=== PATIENT | female | born 1985 | race Caucasian/White ===

== ENCOUNTER 2016-11-08 13:36 | Emergency (ER) | payer MEDICAID ==
[~2016-11-08] VITALS: Ht 149.9 cm; Wt 49.8 kg
[2016-11-08 13:40] VITALS: Ht 149.9 cm; Wt 49.8 kg
--- OUTSIDE RECORDS SUMMARY | 2016-11-08 13:41 | XMS REPORT ---
Author Author Ivone Foster [facility] eClinicalWorks Address Unknown Phone Unavailable Care Team Providers Care Agricultural Inspector Name Role Phone Ivone Foster CP Unavailable Allergies, Adverse Reactions, Alerts Substance Reaction Event Type N.K.D.A. Info Not Available Non Drug Allergy Problems Problem Type Condition Code Onset Dates Condition Status Assessment Nicotine dependence, cigarettes, uncomplicated F17.210 Active Problem Nicotine dependence, cigarettes, uncomplicated F17.210 Active Assessment Encounter for gynecological examination (general) (routine) with abnormal findings Z01.411 Active Problem Right lower quadrant pain R10.31 Active Assessment Right lower quadrant pain R10.31 Active Assessment Encounter for test, result negative Z32.02 Active Assessment Encounter for other screening for malignant neoplasm of breast Z12.39 Active Assessment Encounter for screening for infections with a predominantly sexual mode of transmission Z11.3 Active Medications Medication Code System Code Instructions Start Date End Date Status Dosage Sertraline HCl [facility] [address]-74 50 MG Orally Once a day 1 tablet Hydrocodone-Acetaminophen [facility] [address]-80 5-325 MG Orally every 6 hrs 1 tablet as needed Cyclobenzaprine HCl [facility] [address]-05 10 MG Orally Three times a day 1 tablet Procedures Procedure Coding System Code Date CHYLMD TRACH, DNA, DIR PROBE CPT-4 59178 Jun 26, 2015 MANUEL, DNA, DIR PROBE CPT-4 83458 Jun 26, 2015 N.GONORRHOEAE, DNA, DIR PROB CPT-4 46534 Jun 26, 2015 Office Visit, New Pt., Level 3 CPT-4 98296 Jun 26, 2015 URINE TEST CPT-4 44873 Jun 26, 2015 HYATT VAG, DNA, DIR PROBE CPT-4 23696 Jun 26, 2015 TRICHOMONAS VAGIN, DIR PROBE CPT-4 42262 Jun 26, 2015 HPV HIGH-RISK TYPES CPT-4 29411 Jun 26, 2015 CYTOPATH, C/V AUTO, IN FLUID CPT-4 93378 Jun 26, 2015 Vital Signs Date/Time: Jun 26, 2015 BMI 30.27 Index Weight 112 lbs Height 51 in Blood Pressure Diastolic 69 mm Hg Blood Pressure Systolic 102 mm Hg Temperature 98.4 F Cardiac Monitoring Heart Rate 83 /min Results Name Result Date Reference Range Unit Abnormality Flag BV/VAGINITIS PANEL DNA PROBE ----TRICHOMONAS: TNP 20150626 N CHLAMYDIA/ N. GONORRHOEAE RNA, TMA ----NEISSERIA GONORRHOEAE RNA, TMA NOT DETECTED [id number] NOT DETECTED N ----CHLAMYDIA TRACHOMATIS RNA, TMA NOT DETECTED [id number] NOT DETECTED N Summary Purpose eClinicalWorks Submission
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
--- OUTSIDE RECORDS SUMMARY | 2016-11-08 13:42 | XMS REPORT ---
Author Author Ivone Foster Organization e[employer] Address Unknown Phone Unavailable Care Team Providers Care Large Animal Veterinarian Name Role Phone Ivone Foster CP Unavailable Allergies No Known Allergies Problems Problem Type Condition Code Onset Dates Condition Status Problem Nicotine dependence, cigarettes, uncomplicated F17.210 Active Problem Right lower quadrant pain R10.31 Active Medications No Known Medications Results No Known Results Summary Purpose eClinicalWorks Submission
--- OUTSIDE RECORDS SUMMARY | 2016-11-08 13:42 | XMS REPORT ---
Author Author Ivone Foster Organization [employer] Address Unknown Phone Unavailable Care Team Providers Care Account Manager [id number] Name Role Phone Ivone Foster CP Unavailable Allergies No Known Allergies Problems Problem Type Condition Code Onset Dates Condition Status Problem Nicotine dependence, cigarettes, uncomplicated F17.210 Active Problem Right lower quadrant pain R10.31 Active Medications No Known Medications Results No Known Results Summary Purpose eClinicalWorks Submission
--- OUTSIDE RECORDS SUMMARY | 2016-11-08 13:42 | XMS REPORT | Referral Summary ---
Author Author [facility] Organization [facility] Address Unknown Phone Unavailable Care Team Providers Care Registered Dental Hygienist Name Role Phone NO PCP, PT STATES Primary Care Physician Unavailable Encounter VC ANDREW [id number] Date(s): 12/31/14 - 12/31/14 [facility] [address] [place], [place] [address] Discharge Diagnosis: Acute abdominal pain Discharge Diagnosis: Acute diarrhea Final: ABDOMINAL PAIN, UNSPECIFIED SITE Final: Other acute pain Final: DIARRHEA Final: TOBACCO USE DISORDER Discharge Disposition: 01-Home or Self Care Attending Physician: Daniel Pulido DO Admitting Physician: Daniel Pulido DO Vital Signs Most recent to 1 oldest [Reference Range]: Temperature Oral 36.7 degC [35.8-37.3 degC] (12/31/14 3:56 PM) Peripheral Pulse 69 bpm Rate [60-100 bpm] (12/31/14 7:44 PM) Heart Rate Monitored 69 bpm [60-100 bpm] (12/31/14 7:42 PM) Respiratory Rate 16 br/min [14-20 br/min] (12/31/14 7:44 PM) Blood Pressure 112/75 mmHg [90-140/60-90 mmHg] (12/31/14 7:44 PM) Mean Arterial 86 mmHg Pressure, Cuff (12/31/14 7:42 PM) SpO2 99 % (12/31/14 7:44 PM) Problem List Condition Effective Dates Status Health Status Informant Depression(Confirmed Active patient ) Paranoid Active patient schizophrenia(Confir med) Tobacco Active patient user(Confirmed) Colitis, Active patient ulcerative(Confirmed ) Allergies, Adverse Reactions, Alerts Substance Reaction Severity Status penicillin Adverse Reaction Severe Active Dyspnea sulfamethoxazole Adverse Reaction Medium Active Rash Medications hydrOXYzine hydrochloride 50 mg oral tablet mg tabs, Oral, QID, 0 Refill(s) Start Date: 12/31/14 Status: Ordered Naprosyn 250 mg oral tablet 250 mg 1 tabs, Oral, BID, as needed for pain, # 14 tabs, 0 Refill(s) Start Date: 03/23/15 Stop Date: 03/30/15 Status: Ordered ondansetron 4 mg oral tablet, disintegrating See Instructions, 1 tabs Oral q6-8hrs prn nausea/vomiting, # 12 tabs, 0 Refill(s ) Start Date: 12/31/14 Stop Date: 01/01/16 Status: Ordered sertraline 50 mg oral tablet mg tabs, Oral, Daily, 0 Refill(s) Start Date: 12/31/14 Status: Ordered Results Hematology Most recent to 1 oldest [Reference Range]: WBC [4.8-10.8 8.0 10*3/uL 10*3/uL] (12/31/14 4:43 PM) RBC [4.00-5.20 4.68 10*6/uL 10*6/uL] (12/31/14 4:43 PM) Hgb [12.0-16.0 15.0 gm/dL gm/dL] (12/31/14 4:43 PM) Hct [37.0-47.0 %] 43.4 % (12/31/14 4:43 PM) MCV [82.0-99.0 fL] 92.7 fL (12/31/14 4:43 PM) MCH [27.0-32.0 pg] 32.1 pg *HI* (12/31/14 4:43 PM) MCHC [32.0-36.0 34.6 gm/dL gm/dL] (12/31/14 4:43 PM) RDW [11.5-14.5 %] 12.2 % (12/31/14 4:43 PM) Platelet [150-400 365 10*3/uL 10*3/uL] (12/31/14 4:43 PM) MPV [9.4-12.4 fL] 10.2 fL (12/31/14 4:43 PM) Immature 0.2 % Granulocytes (12/31/14 4:43 PM) [0.0-1.0 %] Neutrophils [51-75 67 % %] (12/31/14 4:43 PM) Lymphocytes [20-46 23 % %] (12/31/14 4:43 PM) Monocytes [4-11 %] 8 % (12/31/14 4:43 PM) Eosinophils [0-4 %] 2 % (12/31/14 4:43 PM) Basophils [0-2 %] 1 % (12/31/14 4:43 PM) Neutro Absolute 5.33 10*3 [1.90-7.00 10*3] (12/31/14 4:43 PM) Lymph Absolute 1.83 10*3 [0.80-3.30 10*3] (12/31/14 4:43 PM) Mclean Absolute 0.64 10*3 [0.30-1.00 10*3] (12/31/14 4:43 PM) Eos Absolute 0.13 10*3 [0.00-0.50 10*3] (12/31/14 4:43 PM) Baso Absolute 0.07 10*3 [0.00-0.20 10*3] (12/31/14 4:43 PM) Chemistry Most recent to 1 oldest [Reference Range]: Sodium Lvl [136-144 135 mEq/L mEq/L] *LOW* (12/31/14 4:43 PM) Potassium Lvl 3.8 mEq/L [3.6-5.1 mEq/L] (12/31/14 4:43 PM) Chloride [99-109 108 mEq/L mEq/L] (12/31/14 4:43 PM) CO2 [22-32 mEq/L] 21 mEq/L *LOW* (12/31/14 4:43 PM) AGAP [3-20] 6 (12/31/14 4:43 PM) BUN [4-20 mg/dL] 12 mg/dL (12/31/14 4:43 PM) Glucose Lvl [70-100 103 mg/dL mg/dL] *HI* (12/31/14 4:43 PM) Creatinine Lvl 0.66 mg/dL [0.44-1.03 mg/dL] (12/31/14 4:43 PM) eGFR [>60] >60 1 (12/31/14 4:43 PM) Calcium Lvl 9.6 mg/dL [8.6-10.0 mg/dL] (12/31/14 4:43 PM) U Beta hCG Ql Negative [Negative] (12/31/14 4:43 PM) 1Result Comment: Multiply eGFR results by 1.21 for race. Urinalysis Most recent to 1 oldest [Reference Range]: UA Color Dk Yellow (12/31/14 4:43 PM) UA Appear Sl Cloudy (12/31/14 4:43 PM) UA pH [5.0-8.0] 6.5 (12/31/14 4:43 PM) UA Leuk Est Negative [Negative] (12/31/14 4:43 PM) UA Nitrite Negative [Negative] (12/31/14 4:43 PM) UA Protein Negative [Negative] (12/31/14 4:43 PM) UA Glucose Negative [Negative] (12/31/14 4:43 PM) UA Ketones Negative [Negative] (12/31/14 4:43 PM) UA Urobilinogen Negative [<1.0] (12/31/14 4:43 PM) UA Bili [Negative] Negative (12/31/14 4:43 PM) UA Blood [Negative] Trace *ABN* (12/31/14 4:43 PM) UA Spec Grav 1.025 [1.003-1.030] (12/31/14 4:43 PM) Type Clean Catch (12/31/14 4:43 PM) UA WBC [0-4] 0-2 (12/31/14 4:43 PM) UA RBC [0-2] 0-2 (12/31/14 4:43 PM) Epithelial Cells 5-10 (12/31/14 4:43 PM) UA Bacteria Moderate *ABN* (12/31/14 4:43 PM) UA Mucous Present (12/31/14 4:43 PM) Immunizations No data available for this section Procedures Procedure Date Related Diagnosis Body Site Colon operation Colostomy1 1colostomy and reversal Social History Social History Type Response Smoking Status Current every day smoker Assessment and Plan No data available for this section
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
--- OUTSIDE RECORDS SUMMARY | 2016-11-08 13:42 | XMS REPORT ---
Author Author Ivone Foster Organization [employer] Address Unknown Phone Unavailable Care Team Providers Care Pupil Personnel Worker Name Role Phone Ivone Foster CP Unavailable Allergies No Known Allergies Problems Problem Type Condition Code Onset Dates Condition Status Problem Nicotine dependence, cigarettes, uncomplicated F17.210 Active Problem Right lower quadrant pain R10.31 Active Medications No Known Medications Results No Known Results Summary Purpose eClinicalWorks Submission
--- OUTSIDE RECORDS SUMMARY | 2016-11-08 13:42 | XMS REPORT ---
Author Author Ivone Foster Organization [employer] Address Unknown Phone Unavailable Care Team Providers Care Mission Assessment Specialist Name Role Phone Ivone Fostre CP Unavailable Allergies No Known Allergies Problems Problem Type Condition Code Onset Dates Condition Status Problem Nicotine dependence, cigarettes, uncomplicated F17.210 Active Problem Right lower quadrant pain R10.31 Active Medications No Known Medications Results No Known Results Summary Purpose eClinicalWorks Submission
--- OUTSIDE RECORDS SUMMARY | 2016-11-08 13:42 | XMS REPORT | Continuity of Care Document ---
Author Author [facility] Organization [facility] Address Unknown Phone Unavailable Allergies Active Description Code Type Severity Reaction Onset Reported/Identified Relationship to Patient Clinical Status Yes MIAMI MIAMI Drug Allergy Unknown RASH 12/04/2008 Yes Sulfa (Sulfonamide Antibiotics Drug Allergy Moderate Adverse Reaction 12/19/2009 Yes Penicillins Drug Allergy Adverse Reaction 12/31/2011 Yes Penicillins Drug Allergy N/A Adverse Reaction 12/31/2011 Yes DayQuil Allergy 12-HR Drug Allergy Adverse Reaction 01/14/2012 Yes DayQuil Allergy 12-HR Drug Allergy N/A Adverse Reaction 01/14/2012 Yes No Allergy Information Drug Allergy 03/18/2012 Yes NyQuil Drug Allergy Adverse Reaction 04/01/2012 Yes NyQuil Drug Allergy N/A Adverse Reaction 04/01/2012 Yes penicillin penicillin Drug Allergy Moderate SHORT OF BREATH 03/26/2016 Yes Sulfa (Sulfonamide Antibiotics) Sulfa (Sulfonamide Antibiotics) Drug Allergy Unknown DIZZY, VOMITING, HIVES, WEAKNESS 03/26/2016 Medications Problems Date Dx Coded Attending Type Code Diagnosis Diagnosed By 03/18/2012 Rony Carrillo MD Final 305.1 TOBACCO USE DISORDER 03/18/2012 Rony Carrillo MD Final 530.81 ESOPHAGEAL REFLUX 03/18/2012 Rony Carrillo MD Final 625.9 FE GENITAL SYMPTOMS NOS 03/18/2012 Rony Carrillo MD 789.00 ABDOMINAL PAIN-SITE NOS 04/01/2012 Leanne Richards DO Final 276.51 DEHYDRATION 04/01/2012 Leanne Richards DO Final 276.8 HYPOPOTASSEMIA 04/01/2012 Leanne Richards DO Final 458.8 HYPOTENSION NEC 04/01/2012 Leanne Richards DO Final 556.8 OTHER ULCERATIVE COLITIS 04/01/2012 Leanne Richards DO Final 648.93 OT CCE COMP PREG-AP 04/06/2012 Vinicius Brooks MD Final 288.60 LEUKOCYTOSIS NOS 04/06/2012 Vinicius Brooks MD Final 648.93 OT CCE COMP PREG-AP 04/06/2012 Vinicius Brooks MD Final 789.04 LLQ ABDOMINAL PAIN 07/02/2012 Shannen LADD, Bobby Rene 648.93 OT CURR COND-ANTEPARTUM 08/24/2012 Shannen LADD, Bobby Arredondo 556.9 ULCERATIVE COLITIS, UNSPECIFIED 08/24/2012 Bobby Pride MD 648.91 OTH CURR COND-DELIVERED 08/24/2012 Bobby Pride MD 648.92 OT CURR COND-DEL W P/P 08/24/2012 Bobby Pride MD 648.93 OT CURR COND-ANTEPARTUM 08/24/2012 Bobby Pride MD 782.1 NONSPECIF SKIN ERUPT NEC 08/24/2012 Bobby Pride MD V27.0 DELIVER-SINGLE LIVEBORN 02/10/2013 Nuno Campoverde DO Final 623.8 NONINFL DISORDER VAG NEC 02/10/2013 Nuno Campoverde DO Final 789.09 ABDOMINAL PAIN-SITE NEC 03/06/2013 Joseph Hoover MD Final 305.1 TOBACCO USE DISORDER 03/06/2013 Joseph Hoover MD Final 530.81 ESOPHAGEAL REFLUX 03/06/2013 Joseph Hoover MD 786.09 RESP ABNORMALITY NEC 03/06/2013 Joseph Hoover MD Admitting 786.2 COUGH 03/06/2013 Joseph Hoover MD Final 848.9 SPRAIN NOS 03/06/2013 Joseph Hoover MD External E928.9 ACCIDENT NOS 11/13/2013 Joseph Hoover MD Final 074.3 HAND, FOOT MOUTH DIS 11/13/2013 Joseph Hoover MD Final 305.1 TOBACCO USE DISORDER 11/13/2013 Joseph Hoover MD 911.2 BLISTER TRUNK W/O INFECT 11/13/2013 Joseph Hoover MD Admitting 913.2 BLISTER FOREARM W/O INF Procedures Code Description Performed By Performed On 74.1 LOW CERVICAL Bobby Pride MD 08/24/2012 Results Test Result Range URINALYSIS WITH MICROSCOPIC - 05/03/12 15:00 UA LEUKOCYTE ESTERASE DIPSTICK NEGATIVE NEGATIVE UA NITRITE DIPSTICK NEGATIVE NEGATIVE UA PROTEIN DIPSTICK NEGATIVE NEGATIVE UA GLUCOSE DIPSTICK NEGATIVE NEGATIVE UA KETONE DIPSTICK TRACE NEGATIVE UA UROBILINOGEN DIPSTICK NORMAL NORMAL UA BILIRUBIN DIPSTICK NEGATIVE NEGATIVE UA BLOOD DIPSTICK NEGATIVE NEGATIVE UA EPITHELIAL CELLS 3+ epi/hpf 0 - 1+ UA MUCUS 4+ NEG TO 1+ UA RBC 0-3 rbc/hpf 0 - 3 UA VOLUME FOR EXAM 12.0 mL (12mL STD) UA WBC 0-1 wbc/hpf 0 - 5 UA SPECIFIC GRAVITY 1.016 1.015-1.025 UR PH 6.5 5.0-7.0 URINE CULTURE - 05/03/12 15:00 Uncategorized CBC W/DIFF - 05/03/12 15:24 GRANULOCYTE # 21.1 k/cumm 2.0-9.0 LYMPHOCYTE # 0.4 k/cumm 1.0-4.0 LYMPHOCYTE % 2 % 20-30 MEAN CELL HGB 34.6 pg 27.0-33.0 MEAN CELL HGB CONCENTRATION 34.6 g/dl 32.0-36.0 MEAN CELL VOLUME 100.2 fl 80.0-100.0 MONOCYTE # 0.7 k/cumm 0.1-1.0 MONOCYTE % 3 % 4-6 RED BLOOD CELL 2.83 m/cumm 4.00-6.00 RED CELL DISTRIBUTION WIDTH 14.0 % 11.0- 15.6 WHITE BLOOD CELL 22.2 k/cumm 5.0-10.0 HEMOGLOBIN 9.8 gm/dL 12.0-16.0 HEMATOCRIT 28.4 % 37.0-47.0 PLATELET COUNT 258 k/cumm 150-450 MANUAL DIFF(R) - 05/03/12 15:24 BAND % 7 % 0-10 DIFFERENTIAL MANUAL RBC MORPH NOTED SEGMENTED NEUTROPHIL % 88 % 50-70 METABOLIC PANEL, COMPREHN - 05/03/12 15:24 POTASSIUM 3.2 mmol/L 3.5-5.3 EST GFR (MDRD) > 60 mL/min > 59 ANION GAP 11 mmol/L 5-15 EST CrCl (CG) > 60 mL/min > 59 GLUCOSE 69 mg/dL 70-99 CALCIUM 8.2 mg/dL 8.5-10.1 BLOOD UREA NITROGEN 7 mg/dL 7-20 CREATININE 0.5 mg/dL 0.6-1.0 SODIUM 136 mmol/L 135-148 CHLORIDE 105 mmol/L 98-110 AST/SGOT 11 Units/L 10-37 ALT/SGPT 17 Units/L < 66 CARBON DIOXIDE 20 mmol/L 21-32 TOTAL PROTEIN 6.4 gm/dL 6.4-8.2 ALBUMIN 2.6 gm/dL 3.4-5.0 BILI TOTAL 0.2 mg/dL 0.0-1.0 ALKALINE PHOSPHATASE TOTAL 64 Units/L 50- 136 INFLUENZA A OIA - INFLUENZA B OIA - 05/03/12 15:25 Uncategorized BLOOD CULTURE - 05/03/12 17:15 Uncategorized BLOOD CULTURE - 05/03/12 17:24 Uncategorized CAMPYLOBACTER ANTIGEN - 05/03/12 17:30 Uncategorized STOOL LEUKOCYTES - 05/03/12 17:30 Uncategorized CLOSTRIDIUM DIFFICILE DNA - 05/03/12 17:30 Uncategorized WET MOUNT - 05/04/12 02:10 Uncategorized GONORRHOEA DNA BY PCR - CHLAMYDIA DNA BY PCR - 05/04/12 02:10 Uncategorized CBC W/DIFF - 05/04/12 07:53 EOSINOPHIL # 0.1 k/cumm 0.1-0.5 EOSINOPHIL % 1 % 2-4 GRANULOCYTE # 14.4 k/cumm 2.0-9.0 GRANULOCYTE % 85 % 50-75 LYMPHOCYTE # 1.4 k/cumm 1.0-4.0 LYMPHOCYTE % 8 % 20-30 MEAN CELL HGB 34.8 pg 27.0-33.0 MEAN CELL HGB CONCENTRATION 34.5 g/dl 32.0-36.0 MEAN CELL VOLUME 101.1 fl 80.0-100.0 MONOCYTE # 1.0 k/cumm 0.1-1.0 MONOCYTE % 6 % 4-6 RED BLOOD CELL 2.60 m/cumm 4.00-6.00 RED CELL DISTRIBUTION WIDTH 13.9 % 11.0- 15.6 WHITE BLOOD CELL 17.1 k/cumm 5.0-10.0 HEMOGLOBIN 9.1 gm/dL 12.0-16.0 HEMATOCRIT 26.3 % 37.0-47.0 PLATELET COUNT 227 k/cumm 150-450 METABOLIC PANEL, COMPREHN - 05/04/12 07:53 POTASSIUM 3.4 mmol/L 3.5-5.3 EST GFR (MDRD) > 60 mL/min > 59 ANION GAP 9 mmol/L 5-15 EST CrCl (CG) > 60 mL/min > 59 GLUCOSE 102 mg/dL 70-99 CALCIUM 8.2 mg/dL 8.5-10.1 BLOOD UREA NITROGEN 3 mg/dL 7-20 CREATININE 0.6 mg/dL 0.6-1.0 SODIUM 139 mmol/L 135-148 CHLORIDE 110 mmol/L 98-110 AST/SGOT 9 Units/L 10-37 ALT/SGPT 13 Units/L < 66 CARBON DIOXIDE 20 mmol/L 21-32 TOTAL PROTEIN 6.0 gm/dL 6.4-8.2 ALBUMIN 2.4 gm/dL 3.4-5.0 BILI TOTAL 0.3 mg/dL 0.0-1.0 ALKALINE PHOSPHATASE TOTAL 59 Units/L 50- 136 CBC W/DIFF - 05/05/12 06:38 BASOPHIL # 0.1 k/cumm 0.0-0.2 BASOPHIL % 1 % 0-1 EOSINOPHIL # 0.3 k/cumm 0.1-0.5 EOSINOPHIL % 3 % 2-4 GRANULOCYTE # 7.4 k/cumm 2.0-9.0 GRANULOCYTE % 72 % 50-75 LYMPHOCYTE # 1.6 k/cumm 1.0-4.0 LYMPHOCYTE % 15 % 20-30 MEAN CELL HGB 35.2 pg 27.0-33.0 MEAN CELL HGB CONCENTRATION 34.7 g/dl 32.0-36.0 MEAN CELL VOLUME 101.6 fl 80.0-100.0 MONOCYTE # 1.0 k/cumm 0.1-1.0 MONOCYTE % 9 % 4-6 RED BLOOD CELL 2.58 m/cumm 4.00-6.00 RED CELL DISTRIBUTION WIDTH 14.1 % 11.0- 15.6 WHITE BLOOD CELL 10.3 k/cumm 5.0-10.0 HEMOGLOBIN 9.1 gm/dL 12.0-16.0 HEMATOCRIT 26.2 % 37.0-47.0 PLATELET COUNT 251 k/cumm 150-450 RENAL FUNCTION PANEL - 05/05/12 06:38 POTASSIUM 3.6 mmol/L 3.5-5.3 EST GFR (MDRD) > 60 mL/min > 59 ANION GAP 12 mmol/L 5-15 EST CrCl (CG) > 60 mL/min > 59 GLUCOSE 104 mg/dL 70-99 CALCIUM 8.5 mg/dL 8.5-10.1 BLOOD UREA NITROGEN 5 mg/dL 7-20 CREATININE 0.6 mg/dL 0.6-1.0 SODIUM 142 mmol/L 135-148 CHLORIDE 112 mmol/L 98-110 CARBON DIOXIDE 18 mmol/L 21-32 ALBUMIN 2.2 gm/dL 3.4-5.0 PHOSPHORUS 3.7 mg/dL 2.5-4.9 MAGNESIUM - 05/05/12 06:38 MAGNESIUM 1.4 mg/dL 1.8-2.4 HEPATITIS PANEL-ACUTE - 05/05/12 06:38 AB HEPATITIS A IGM NEGATIVE NEGATIVE AG HEPATITIS B SURF. NEGATIVE NEGATIVE AB HEPATITIS B CORE IGM NEGATIVE NEGATIVE AB HEPATITIS C NEGATIVE NEGATIVE IRON W/ BINDING CAPACITY - 05/05/12 06:38 IRON SATURATION 4 % SAT 11-46 IRON BINDING CAPACITY, TOTAL 331 mcg/dL 250-450 IRON 13 mcg/dL 35-150 FERRITIN - 05/05/12 06:38 FERRITIN 60 ng/mL 8-252 VITAMIN B12 - 05/05/12 06:38 VITAMIN B12 226 pg/mL 211-911 FOLIC ACID,SERUM - 05/05/12 06:38 FOLIC ACID,SERUM 14.0 ng/mL > 3.4 CBC W/DIFF - 05/06/12 05:46 BASOPHIL # 0.1 k/cumm 0.0-0.2 BASOPHIL % 1 % 0-1 EOSINOPHIL # 0.2 k/cumm 0.1-0.5 EOSINOPHIL % 2 % 2-4 GRANULOCYTE # 10.3 k/cumm 2.0-9.0 GRANULOCYTE % 81 % 50-75 LYMPHOCYTE # 1.3 k/cumm 1.0-4.0 LYMPHOCYTE % 10 % 20-30 MEAN CELL HGB 34.7 pg 27.0-33.0 MEAN CELL HGB CONCENTRATION 34.2 g/dl 32.0-36.0 MEAN CELL VOLUME 101.4 fl 80.0-100.0 MONOCYTE # 0.8 k/cumm 0.1-1.0 MONOCYTE % 7 % 4-6 RED BLOOD CELL 2.60 m/cumm 4.00-6.00 RED CELL DISTRIBUTION WIDTH 13.6 % 11.0- 15.6 WHITE BLOOD CELL 12.8 k/cumm 5.0-10.0 HEMOGLOBIN 9.0 gm/dL 12.0-16.0 HEMATOCRIT 26.3 % 37.0-47.0 PLATELET COUNT 265 k/cumm 150-450 RENAL FUNCTION PANEL - 05/06/12 05:46 POTASSIUM 3.5 mmol/L 3.5-5.3 EST GFR (MDRD) > 60 mL/min > 59 ANION GAP 13 mmol/L 5-15 EST CrCl (CG) > 60 mL/min > 59 GLUCOSE 89 mg/dL 70-99 CALCIUM 8.1 mg/dL 8.5-10.1 BLOOD UREA NITROGEN 7 mg/dL 7-20 CREATININE 0.7 mg/dL 0.6-1.0 SODIUM 140 mmol/L 135-148 CHLORIDE 107 mmol/L 98-110 CARBON DIOXIDE 20 mmol/L 21-32 ALBUMIN 2.2 gm/dL 3.4-5.0 PHOSPHORUS 4.4 mg/dL 2.5-4.9 MAGNESIUM - 05/06/12 05:46 MAGNESIUM 1.3 mg/dL 1.8-2.4 HOMOCYSTEINE, PLASMA - 05/06/12 05:46 HOMOCYSTEINE, PLASMA 5.5 mcmol/L 3.7- 13.9 METHYLMALONIC ACID, SERUM - 05/06/12 14:51 METHYLMALONIC ACID, SERUM 78 nmol/L 73- 376 STOOL LEUKOCYTES - 05/07/12 00:00 Uncategorized CAMPYLOBACTER ANTIGEN - 05/07/12 00:00 Uncategorized CLOSTRIDIUM DIFFICILE DNA - 05/07/12 00:00 Uncategorized CBC W/DIFF - 05/07/12 05:05 BASOPHIL # 0.1 k/cumm 0.0-0.2 BASOPHIL % 1 % 0-1 GRANULOCYTE # 12.6 k/cumm 2.0-9.0 GRANULOCYTE % 82 % 50-75 LYMPHOCYTE # 1.4 k/cumm 1.0-4.0 LYMPHOCYTE % 9 % 20-30 MEAN CELL HGB 34.8 pg 27.0-33.0 MEAN CELL HGB CONCENTRATION 34.6 g/dl 32.0-36.0 MEAN CELL VOLUME 100.3 fl 80.0-100.0 MONOCYTE # 1.3 k/cumm 0.1-1.0 MONOCYTE % 8 % 4-6 RED BLOOD CELL 2.59 m/cumm 4.00-6.00 RED CELL DISTRIBUTION WIDTH 13.6 % 11.0- 15.6 WHITE BLOOD CELL 15.4 k/cumm 5.0-10.0 HEMOGLOBIN 9.0 gm/dL 12.0-16.0 HEMATOCRIT 26.0 % 37.0-47.0 PLATELET COUNT 261 k/cumm 150-450 RENAL FUNCTION PANEL - 05/07/12 05:05 POTASSIUM 3.1 mmol/L 3.5-5.3 EST GFR (MDRD) > 60 mL/min > 59 ANION GAP 11 mmol/L 5-15 EST CrCl (CG) > 60 mL/min > 59 GLUCOSE 100 mg/dL 70-99 CALCIUM 8.3 mg/dL 8.5-10.1 BLOOD UREA NITROGEN 4 mg/dL 7-20 CREATININE 0.6 mg/dL 0.6-1.0 SODIUM 140 mmol/L 135-148 CHLORIDE 107 mmol/L 98-110 CARBON DIOXIDE 22 mmol/L 21-32 ALBUMIN 2.2 gm/dL 3.4-5.0 PHOSPHORUS 4.1 mg/dL 2.5-4.9 MAGNESIUM - 05/07/12 05:05 MAGNESIUM 1.9 mg/dL 1.8-2.4 CBC W/DIFF - 05/08/12 04:55 BASOPHIL # 0.1 k/cumm 0.0-0.2 BASOPHIL % 1 % 0-1 EOSINOPHIL # 0.4 k/cumm 0.1-0.5 EOSINOPHIL % 4 % 2-4 GRANULOCYTE # 6.5 k/cumm 2.0-9.0 GRANULOCYTE % 66 % 50-75 LYMPHOCYTE # 2.1 k/cumm 1.0-4.0 LYMPHOCYTE % 21 % 20-30 MEAN CELL HGB 34.4 pg 27.0-33.0 MEAN CELL HGB CONCENTRATION 34.0 g/dl 32.0-36.0 MEAN CELL VOLUME 101.1 fl 80.0-100.0 MONOCYTE # 0.8 k/cumm 0.1-1.0 MONOCYTE % 8 % 4-6 RED BLOOD CELL 2.57 m/cumm 4.00-6.00 RED CELL DISTRIBUTION WIDTH 13.7 % 11.0- 15.6 WHITE BLOOD CELL 9.9 k/cumm 5.0-10.0 HEMOGLOBIN 8.8 gm/dL 12.0-16.0 HEMATOCRIT 26.0 % 37.0-47.0 PLATELET COUNT 277 k/cumm 150-450 RENAL FUNCTION PANEL - 05/08/12 04:55 POTASSIUM 3.3 mmol/L 3.5-5.3 EST GFR (MDRD) > 60 mL/min > 59 ANION GAP 11 mmol/L 5-15 EST CrCl (CG) > 60 mL/min > 59 GLUCOSE 91 mg/dL 70-99 CALCIUM 8.2 mg/dL 8.5-10.1 BLOOD UREA NITROGEN 5 mg/dL 7-20 CREATININE 0.6 mg/dL 0.6-1.0 SODIUM 143 mmol/L 135-148 CHLORIDE 109 mmol/L 98-110 CARBON DIOXIDE 23 mmol/L 21-32 ALBUMIN 2.1 gm/dL 3.4-5.0 PHOSPHORUS 4.2 mg/dL 2.5-4.9 MAGNESIUM - 05/08/12 04:55 MAGNESIUM 1.5 mg/dL 1.8-2.4 STOOL FAT STAIN, QUALITATIVE - 05/08/12 14:45 Uncategorized CBC W/DIFF - 05/09/12 06:35 EOSINOPHIL # 0.3 k/cumm 0.1-0.5 EOSINOPHIL % 4 % 2-4 GRANULOCYTE # 5.9 k/cumm 2.0-9.0 GRANULOCYTE % 67 % 50-75 LYMPHOCYTE # 1.9 k/cumm 1.0-4.0 LYMPHOCYTE % 22 % 20-30 MEAN CELL HGB 34.7 pg 27.0-33.0 MEAN CELL HGB CONCENTRATION 34.1 g/dl 32.0-36.0 MEAN CELL VOLUME 101.8 fl 80.0-100.0 MONOCYTE # 0.7 k/cumm 0.1-1.0 MONOCYTE % 7 % 4-6 RED BLOOD CELL 2.54 m/cumm 4.00-6.00 RED CELL DISTRIBUTION WIDTH 13.6 % 11.0- 15.6 WHITE BLOOD CELL 8.9 k/cumm 5.0-10.0 HEMOGLOBIN 8.8 gm/dL 12.0-16.0 HEMATOCRIT 25.8 % 37.0-47.0 PLATELET COUNT 311 k/cumm 150-450 RENAL FUNCTION PANEL - 05/09/12 06:35 POTASSIUM 3.5 mmol/L 3.5-5.3 EST GFR (MDRD) > 60 mL/min > 59 ANION GAP 11 mmol/L 5-15 EST CrCl (CG) > 60 mL/min > 59 GLUCOSE 92 mg/dL 70-99 CALCIUM 8.1 mg/dL 8.5-10.1 BLOOD UREA NITROGEN 4 mg/dL 7-20 CREATININE 0.5 mg/dL 0.6-1.0 SODIUM 142 mmol/L 135-148 CHLORIDE 110 mmol/L 98-110 CARBON DIOXIDE 21 mmol/L 21-32 ALBUMIN 2.1 gm/dL 3.4-5.0 PHOSPHORUS 4.0 mg/dL 2.5-4.9 MAGNESIUM - 05/09/12 06:35 MAGNESIUM 1.5 mg/dL 1.8-2.4 CBC - 05/10/12 10:00 MEAN CELL HGB 34.0 pg 27.0-33.0 MEAN CELL HGB CONCENTRATION 34.0 g/dl 32.0-36.0 MEAN CELL VOLUME 100.1 fl 80.0-100.0 RED BLOOD CELL 2.72 m/cumm 4.00-6.00 RED CELL DISTRIBUTION WIDTH 13.4 % 11.0- 15.6 WHITE BLOOD CELL 10.5 k/cumm 5.0-10.0 HEMOGLOBIN 9.3 gm/dL 12.0-16.0 HEMATOCRIT 27.2 % 37.0-47.0 PLATELET COUNT 398 k/cumm 150-450 RENAL FUNCTION PANEL - 05/10/12 10:00 POTASSIUM 3.3 mmol/L 3.5-5.3 EST GFR (MDRD) > 60 mL/min > 59 ANION GAP 10 mmol/L 5-15 EST CrCl (CG) > 60 mL/min > 59 GLUCOSE 143 mg/dL 70-99 CALCIUM 8.6 mg/dL 8.5-10.1 BLOOD UREA NITROGEN 5 mg/dL 7-20 CREATININE 0.6 mg/dL 0.6-1.0 SODIUM 140 mmol/L 135-148 CHLORIDE 108 mmol/L 98-110 CARBON DIOXIDE 22 mmol/L 21-32 ALBUMIN 2.5 gm/dL 3.4-5.0 PHOSPHORUS 3.5 mg/dL 2.5-4.9 MAGNESIUM - 05/10/12 10:00 MAGNESIUM 1.1 mg/dL 1.8-2.4 MAGNESIUM - 05/10/12 19:42 MAGNESIUM 2.2 mg/dL 1.8-2.4 URINALYSIS WITH MICROSCOPIC - 07/02/12 19:50 UA LEUKOCYTE ESTERASE DIPSTICK 2+ NEGATIVE UA NITRITE DIPSTICK NEGATIVE NEGATIVE UA PROTEIN DIPSTICK NEGATIVE NEGATIVE UA GLUCOSE DIPSTICK NEGATIVE NEGATIVE UA KETONE DIPSTICK 2+ NEGATIVE UA UROBILINOGEN DIPSTICK NORMAL NORMAL UA BILIRUBIN DIPSTICK NEGATIVE NEGATIVE UA BLOOD DIPSTICK NEGATIVE NEGATIVE UA BACTERIA 4+ NEGATIVE UA EPITHELIAL CELLS 5+ epi/hpf 0 - 1+ UA MUCUS 3+ NEG TO 1+ UA RBC 0-3 rbc/hpf 0 - 3 UA VOLUME FOR EXAM 12.0 mL (12mL STD) UA WBC 20-50 wbc/hpf 0 - 5 UA SPECIFIC GRAVITY 1.012 1.015-1.025 UR PH 5.0 5.0-7.0 URINE CULTURE - 07/02/12 19:50 Uncategorized WET MOUNT - 07/02/12 20:55 Uncategorized FIBRONECTIN - 07/02/12 20:55 FIBRONECTIN POSITIVE NEGATIVE CBC - 07/02/12 21:30 MEAN CELL HGB 32.1 pg 27.0-33.0 MEAN CELL HGB CONCENTRATION 33.2 g/dL 32.0-37.0 MEAN CELL VOLUME 96.6 fl 80.0-100.0 RED BLOOD CELL 2.90 m/cumm 4.00-6.00 RED CELL DISTRIBUTION WIDTH 13.8 % 11.0- 15.6 WHITE BLOOD CELL 15.7 k/cumm 5.0-10.0 HEMOGLOBIN 9.3 gm/dL 12.0-16.0 HEMATOCRIT 28.0 % 37.0-47.0 PLATELET COUNT 406 k/cumm 150-400 CBC - 08/24/12 12:10 MEAN CELL HGB 32.5 pg 27.0-33.0 MEAN CELL HGB CONCENTRATION 33.1 g/dL 32.0-37.0 MEAN CELL VOLUME 98.0 fl 80.0-100.0 RED BLOOD CELL 3.05 m/cumm 4.00-6.00 RED CELL DISTRIBUTION WIDTH 14.7 % 11.0- 15.6 WHITE BLOOD CELL 12.6 k/cumm 5.0-10.0 HEMOGLOBIN 9.9 gm/dL 12.0-16.0 HEMATOCRIT 29.9 % 37.0-47.0 PLATELET COUNT 361 k/cumm 150-400 CORD VENOUS BLOOD GAS - 08/24/12 14:50 VENOUS CORD BLOOD BASE EXCESS -2.0 meq/L -5.8-0.7 COMMENT VENOUS VENOUS CORD BLOOD HCO3 23.4 meq/L 17.4- 25.4 VENOUS CORD BLOOD PCO2 42 mm Hg 28-57 VENOUS CORD BLOOD PH 7.36 7.23-7.46 VENOUS CORD BLOOD PO2 26 mm Hg 15-42 VENOUS CORD BLOOD O2 SAT 57 % 14-75 CORD ARTERIAL BLOOD GAS - 08/24/12 14:50 ARTERIAL CORD BLD BASE EXCESS -1.7 meq/L -7.6-1.3 COMMENT ARTERIAL ARTERIAL CORD BICARBONATE 26.8 meq/L 16.0 -27.1 ARTERIAL CORD BLOOD PCO2 62 mm Hg 32-69 ARTERIAL CORD BLOOD PH 7.26 7.14-7.40 ARTERIAL CORD BLOOD PO2 7.0 mm Hg 8-33 ARTERIAL CORD BLOOD O2 SAT < 15 % 5-59 HEMOGLOBIN - 08/24/12 18:19 MEAN CELL VOLUME 98.3 fl 80.0-100.0 HEMOGLOBIN 9.7 gm/dL 12.0-16.0 METABOLIC PANEL, COMPREHN - 08/25/12 06:36 POTASSIUM 3.6 mmol/L 3.5-5.3 EST GFR (MDRD) > 60 mL/min > 59 ANION GAP 9 mmol/L 5-15 EST CrCl (CG) > 60 mL/min > 59 GLUCOSE 62 mg/dL 70-99 CALCIUM 7.7 mg/dL 8.5-10.1 BLOOD UREA NITROGEN 8 mg/dL 7-20 CREATININE 0.8 mg/dL 0.6-1.0 SODIUM 141 mmol/L 135-148 CHLORIDE 107 mmol/L 98-110 AST/SGOT 26 Units/L 10-37 ALT/SGPT 18 Units/L < 66 CARBON DIOXIDE 25 mmol/L 21-32 TOTAL PROTEIN 5.3 gm/dL 6.4-8.2 ALBUMIN 2.1 gm/dL 3.4-5.0 BILI TOTAL 0.3 mg/dL 0.0-1.0 ALKALINE PHOSPHATASE TOTAL 215 Units/L 50 -136 HEMOGLOBIN - 08/25/12 06:37 MEAN CELL VOLUME 98.1 fl 80.0-100.0 HEMOGLOBIN 8.7 gm/dL 12.0-16.0 URINALYSIS, ROUTINE - 11/14/15 14:55 UA LEUKOCYTE ESTERASE DIPSTICK TRACE NEGATIVE UA NITRITE DIPSTICK NEGATIVE NEGATIVE UA PROTEIN DIPSTICK TRACE NEGATIVE UA GLUCOSE DIPSTICK NEGATIVE NEGATIVE UA KETONE DIPSTICK NEGATIVE NEGATIVE UA UROBILINOGEN DIPSTICK NORMAL NORMAL UA BILIRUBIN DIPSTICK NEGATIVE NEGATIVE UA BLOOD DIPSTICK 2+ NEGATIVE UA SPECIFIC GRAVITY 1.030 1.015-1.025 UR PH 5.0 5.0-7.0 UA MICROSCOPIC - 11/14/15 14:55 UA AMORPHOUS SEDIMENT 4+ UA BACTERIA 5+ NEGATIVE UA EPITHELIAL CELLS 4+ epi/hpf 0 - 1+ UA MUCUS 3+ NEG TO 1+ UA RBC 3-5 rbc/hpf 0 - 3 UA VOLUME FOR EXAM 12.0 mL (12mL STD) UA WBC 2-5 wbc/hpf 0 - 5 UR TEST - 11/14/15 14:55 UR TEST NEGATIVE NEGATIVE CBC W/DIFF - 11/14/15 15:25 BASOPHIL # 0.1 k/cumm 0.0-0.2 BASOPHIL % 1 % 0-1 EOSINOPHIL # 0.3 k/cumm 0.1-0.5 EOSINOPHIL % 4 % 2-4 GRANULOCYTE # 6.2 k/cumm 2.0-9.0 GRANULOCYTE % 71 % 50-75 LYMPHOCYTE # 1.5 k/cumm 1.0-4.0 LYMPHOCYTE % 17 % 20-30 MEAN CELL HGB 33.3 pg 27.0-33.0 MEAN CELL HGB CONCENTRATION 34.9 g/dL 32.0-37.0 MEAN CELL VOLUME 95.4 fl 80.0-100.0 MONOCYTE # 0.7 k/cumm 0.1-1.0 MONOCYTE % 8 % 4-6 RED BLOOD CELL 4.17 m/cumm 4.00-6.00 RED CELL DISTRIBUTION WIDTH 12.0 % 11.0- 15.6 WHITE BLOOD CELL 8.7 k/cumm 5.0-10.0 HEMOGLOBIN 13.9 gm/dL 12.0-16.0 HEMATOCRIT 39.8 % 37.0-47.0 PLATELET COUNT 287 k/cumm 150-450 METABOLIC PANEL, COMPREHN - 11/14/15 15:25 POTASSIUM 3.4 mmol/L 3.5-5.3 EST GFR (MDRD) > 60 mL/min > 59 ANION GAP 7 mmol/L 5-15 EST CrCl (CG) > 60 mL/min > 59 GLUCOSE 97 mg/dL 70-99 CALCIUM 8.5 mg/dL 8.5-10.1 BLOOD UREA NITROGEN 11 mg/dL 7-20 CREATININE 0.7 mg/dL 0.6-1.0 SODIUM 138 mmol/L 135-148 CHLORIDE 107 mmol/L 98-110 AST/SGOT 19 Units/L 10-37 ALT/SGPT 22 Units/L < 66 CARBON DIOXIDE 24 mmol/L 21-32 TOTAL PROTEIN 7.7 gm/dL 6.4-8.2 ALBUMIN 4.1 gm/dL 3.4-5.0 BILI TOTAL 0.5 mg/dL 0.0-1.0 ALKALINE PHOSPHATASE TOTAL 71 IU/L 45- 117 URINALYSIS, ROUTINE - 03/26/16 16:20 UA LEUKOCYTE ESTERASE DIPSTICK TRACE NEGATIVE UA NITRITE DIPSTICK NEGATIVE NEGATIVE UA PROTEIN DIPSTICK TRACE NEGATIVE UA GLUCOSE DIPSTICK NEGATIVE NEGATIVE UA KETONE DIPSTICK NEGATIVE NEGATIVE UA UROBILINOGEN DIPSTICK NORMAL NORMAL UA BILIRUBIN DIPSTICK NEGATIVE NEGATIVE UA BLOOD DIPSTICK TRACE NEGATIVE UA SPECIFIC GRAVITY 1.030 1.015-1.025 UR PH 5.0 5.0-7.0 UA MICROSCOPIC - 03/26/16 16:20 UA BACTERIA 2+ NEGATIVE UA EPITHELIAL CELLS 2+ epi/hpf 0 - 1+ UA HYALINE CAST 1-2 cast/lpf 0 - 1 UA MUCUS 1+ NEG TO 1+ UA RBC 3-5 rbc/hpf 0 - 3 UA VOLUME FOR EXAM 12.0 mL (12mL STD) UA WBC 5-10 wbc/hpf 0 - 5 UR TEST - 03/26/16 16:20 UR TEST NEGATIVE NEGATIVE Encounters ACCT No. Visit Date/Time Discharge Status Pt. Type Provider Facility Loc./Unit Complaint [id number] 11/13/2013 19:44:00 2013 20:49:00 DIS Emergency Joseph Hoover MD [facility] [id number] 03/06/2013 17:22:00 2012 19:15:00 DIS Emergency Joseph Hoover MD [facility] [id number] 02/10/2013 12:31:00 2012 15:03:00 DIS Emergency Nuno Campoverde DO [facility] [id number] 04/06/2012 05:57:00 2011 07:58:00 DIS Emergency Vinicius Brooks MD [facility] on [address] ME[address]A [id number] 04/01/2012 06:38:00 2011 17:00:00 DIS Inpatient Leanne Richards DO [facility] on [address] J[address] [id number] 03/18/2012 00:17:00 2011 03:05:00 DIS Emergency Lorena LADD, Rony Chilel [facility] on [address]
--- OUTSIDE RECORDS SUMMARY | 2016-11-08 13:42 | XMS REPORT | Referral Summary ---
Author Author [facility] Organization [facility] Address Unknown Phone Unavailable Care Team Providers Care Managing Editor Name Role Phone NO PCP, PT STATES Primary Care Physician Unavailable Encounter VC ANDREW [id number] Date(s): 03/23/15 - 03/23/15 [facility] [address] [place] [address] Discharge Diagnosis: Acute urinary tract infection Final: URINARY TRACT INFECTION, SITE NOT SPECIFIED Discharge Disposition: 01-Home or Self Care Attending Physician: Anders Hill MD Admitting Physician: Anders Hill MD Referring Physician: Self Referred, X Vital Signs Most recent to 1 oldest [Reference Range]: Temperature Oral 36.5 degC [35.8-37.3 degC] (03/23/15 4:15 PM) Peripheral Pulse 85 bpm Rate [60-100 bpm] (03/23/15 4:15 PM) Respiratory Rate 18 br/min [14-20 br/min] (03/23/15 4:15 PM) Blood Pressure 120/71 mmHg [90-140/60-90 mmHg] (03/23/15 4:15 PM) SpO2 98 % (03/23/15 4:15 PM) Problem List Condition Effective Dates Status [...] to 1 oldest [Reference Range]: WBC [4.8-10.8 10.1 10*3/uL 10*3/uL] (03/23/15 1:06 PM) RBC [4.00-5.20] 4.69 (03/23/15 1:06 PM) Hgb [12.0-16.0 15.8 gm/dL gm/dL] (03/23/15 1:06 PM) Hct [37.0-47.0 %] 43.7 % (03/23/15 1:06 PM) MCV [82.0-99.0 fL] 93.2 fL (03/23/15 1:06 PM) MCH [27.0-32.0 pg] 33.7 pg *HI* (03/23/15 1:06 PM) MCHC [32.0-36.0 36.2 gm/dL gm/dL] *HI* (03/23/15 1:06 PM) RDW [11.5-14.5 %] 12.4 % (03/23/15 1:06 PM) Platelet [150-400 312 10*3/uL 10*3/uL] (03/23/15 1:06 PM) MPV [9.4-12.4 fL] 10.5 fL (03/23/15 1:06 PM) Immature 0.3 % Granulocytes (03/23/15 1:06 PM) [0.0-1.0 %] Neutrophils [51-75 77 % %] *HI* (03/23/15 1:06 PM) Lymphocytes [20-46 11 % %] *LOW* (03/23/15 1:06 PM) Monocytes [4-11 %] 9 % (03/23/15 1:06 PM) Eosinophils [0-4 %] 2 % (03/23/15 1:06 PM) Basophils [0-2 %] 0 % (03/23/15 1:06 PM) Neutro Absolute 7.78 10*3 [1.90-7.00 10*3] *HI* (03/23/15 1:06 PM) Lymph Absolute 1.12 10*3 [0.80-3.30 10*3] (03/23/15 1:06 PM) Wright Absolute 0.91 10*3 [0.30-1.00 10*3] (03/23/15 1:06 PM) Eos Absolute 0.21 10*3 [0.00-0.50 10*3] (03/23/15 1:06 PM) Baso Absolute 0.04 10*3 [0.00-0.20 10*3] (03/23/15 1:06 PM) Nucleated RBC 0.0 /100 WBC Automated [0 /100 (03/23/15 1:06 PM) WBC] Chemistry Most recent to 1 oldest [Reference Range]: Sodium Lvl [136-144 137 mEq/L mEq/L] (03/23/15 1:06 PM) Potassium Lvl 4.2 mEq/L [3.6-5.1 mEq/L] (03/23/15 1:06 PM) Chloride [99-109 104 mEq/L mEq/L] (03/23/15 1:06 PM) CO2 [22-32 mEq/L] 20 mEq/L *LOW* (03/23/15 1:06 PM) AGAP [3-20] 13 (03/23/15 1:06 PM) BUN [4-20 mg/dL] 9 mg/dL (03/23/15 1:06 PM) Glucose Lvl [70-100 102 mg/dL mg/dL] *HI* (03/23/15 1:06 PM) Creatinine Lvl 0.69 mg/dL [0.44-1.03 mg/dL] (03/23/15 1:06 PM) eGFR [>60] >60 1 (03/23/15 1:06 PM) Calcium Lvl 10.4 mg/dL [8.6-10.0 mg/dL] *HI* (03/23/15 1:06 PM) Albumin Lvl [3.5-4.8 4.5 gm/dL gm/dL] (03/23/15 1:06 PM) Total Protein 8.8 gm/dL [6.1-7.9 gm/dL] *HI* (03/23/15 1:06 PM) Globulin [1.9-4.3 4.3 gm/dL gm/dL] (03/23/15 1:06 PM) ALT [14-54 U/L] 63 U/L *HI* (03/23/15 1:06 PM) AST [15-41 U/L] 43 U/L *HI* (03/23/15 1:06 PM) Alk Phos [26-104 98 U/L U/L] (03/23/15 1:06 PM) Bili Total [0.2-1.2 0.6 mg/dL 2 mg/dL] (03/23/15 1:06 PM) Lipase Lvl [8-48 11 U/L U/L] (03/23/15 1:06 PM) Screen, Negative Urine NPT (03/23/15 1:10 PM) 1Result Comment: Multiply eGFR results by 1.21 for race. 2Result Comment: Naproxen, specifically the metabolite O-desmethylnaproxen, may cause spurious elevation in Total Bilirubin levels. Urinalysis Most recent to 1 oldest [Reference Range]: UA Color Yellow (03/23/15 1:06 PM) UA Appear Clear (03/23/15 1:06 PM) UA pH [5.0-8.0] 5.0 (03/23/15 1:06 PM) UA Leuk Est Negative [Negative] (03/23/15 1:06 PM) UA Nitrite Negative [Negative] (03/23/15 1:06 PM) UA Protein Trace [Negative] *ABN* (03/23/15 1:06 PM) UA Glucose Negative [Negative] (03/23/15 1:06 PM) UA Ketones Negative [Negative] (03/23/15 1:06 PM) UA Urobilinogen Negative [<1.0] (03/23/15 1:06 PM) UA Bili [Negative] Negative (03/23/15 1:06 PM) UA Blood [Negative] Pos 1+ *ABN* (03/23/15 1:06 PM) UA Spec Grav 1.022 [1.003-1.030] (03/23/15 1:06 PM) Type Clean Catch (03/23/15 1:06 PM) UA WBC [0-4] 0-2 (03/23/15 1:06 PM) UA RBC [0-2] 0-2 (03/23/15 1:06 PM) Epithelial Cells 5-10 (03/23/15 1:06 PM) UA Bacteria Moderate *ABN* (03/23/15 1:06 PM) UA Hyal Cast [0-3] 1-3 (03/23/15 1:06 PM) UA Mucous Present (03/23/15 1:06 PM) Microbiology Reports TEST: Affirm Vaginitis Panel STATUS: Auth (Verified) BODY SITE: SOURCE: Cervix/Vaginal COLLECTED DATE/TIME: 03/23/15 2:33 PM Affirm Vaginitis Panel Negative for Trichomonas vaginalis Positive for Gardnerella vaginalis Negative for Mar[place] species Immunizations No data available for this section Procedures Procedure Date Related Diagnosis Body Site Colon operation Colostomy1 1colostomy and reversal Social History Social History Type Response Smoking Status Current every day smoker Assessment and Plan No data available for this section
[2016-11-08] MEDS ORDERED: IBUP-1724 PO (13:56)
[2016-11-08] MEDS ORDERED: SERT50TA PO (13:56)
[2016-11-08] MEDS ORDERED: IBUP-1842 PO (13:57)
--- OUTSIDE RECORDS SUMMARY | 2016-11-08 14:01 | XMS REPORT | Continuity of Care Document ---
Author Author [facility] Organization [facility] Address Unknown Phone Unavailable Allergies Active Description Code Type Severity Reaction Onset Reported/Identified Relationship to Patient Clinical Status Yes BARROW BARROW Drug Allergy Unknown RASH 12/04/2008 Yes Sulfa [...] Status Pt. Type Provider Facility Loc./Unit Complaint [id number] 11/13/2013 19:44:00 2013 20:49:00 DIS Emergency Joseph Hoover MD [facility] [id number] 03/06/2013 17:22:00 2012 19:15:00 DIS Emergency Joseph Hoover MD [facility] [id number] 02/10/2013 12:31:00 2012 15:03:00 DIS Emergency Nuno Campoverde DO [facility] [id number] 04/06/2012 05:57:00 2011 07:58:00 DIS Emergency Vinicius Brooks MD [facility] on [address] [id number] 04/01/2012 06:38:00 2011 17:00:00 DIS Inpatient Leanne Richards DO [facility] on [address] J[address]W [id number] 03/18/2012 00:17:00 2011 03:05:00 DIS Emergency Lorena LADD, Rony Chilel [facility] on [address]
--- NOTE | 2016-11-08 14:04 | ERPDOC ---
Departure Disposition Decision Date: Nov 08, 2016 Disposition Decision Time: 16:31 Disposition: 01 DISCHARGED HOME, SELF-CARE Impression Impression Impression: Primary Impression: Right ovarian cyst Severity: Moderate Condition: Improved Seen By: Mid-level only Referrals: JINNY DUKE MD Patient Instructions: Ovarian Cyst (ED) Problems/Meds/Labs Reviewed?: Yes Medications reviewed and manag: Yes Additional Instructions: You have an ovarian cyst on the right. You need to follow with Dr. Duke or someone in her office this week (see phone number attached with dismissal packet). You may take 800mg of ibuprofen every 8 hours for pain. You may tae [place] 5/325mg, 1-2 tabs every 6 hours as needed for pain. Medication may cause drowsiness so avoid operating heavy machinery, driving or drinking alcohol while taking. You may take Zofran 4 mg ODT, dissolve one tab on tongue every 6 hours as needed for nausea or vomiting. If you pain is worsening before appointment for follow up please page Dr. Duke directly through [facility] mixing operator. Follow treatment plan. Follow up care ordered?: Yes Mental Status: Alert, Oriented Scripts Ondansetron (Zofran Odt) 4 Mg Tab.rapdis 4 MG PO Q6HR for NAUSEA &/OR VOMITING, #15 TAB Oral disintegrating tablet Prov: SAROJ RYAN ZINC SKIMMER 11/08/16 Hydrocodone/Acetaminophen ([place] 5-325 Tablet) 5-325 Tablet 1-2 TAB PO Q6HPRN, #20 TAB Prov: SAROJ RYAN APRN 11/08/16 HPI - Abdominal Pain General Chief Complaint: Abdominal Pain Stated Complaint: R SIDE PAIN Time Seen by Provider: 13:50 Source: patient HPI - Abdominal Pain Initial Comments 31-year-old female presents to ER with complaint of right lower quadrant pain for past 3 days. Reports she has had mild nausea and some loose stools. Says that pain feels like gas. Pain worse after eating. Patient states that she has had a colostomy with bowel resection due to ulcerative colitis. LMP 4--17, denies any new sexual partners. Pain Scale: Now: 4/10 Quality: cramping Associated Symptoms: DENIES: back pain, chest pain, diaphoresis, fever/chills, shortness of breath, swelling/mass in abdomen, weakness Allergies: Coded Allergies: Sulfa (Sulfonamide Antibiotics) (Verified Allergy, Unknown, HIVES, 11/08/16 ) Past History Past Medical History Metabolic: DENIES: diabetes Cardiac: DENIES: angina Respiratory: DENIES: asthma GI: ulcerative colitis Female: DENIES: renal insufficiency Neurological: DENIES: seizures Musculoskeletal: DENIES: rheumatoid arthritis Psychological: DENIES: depression Surgical History General: colonoscopy, other (Colectomy) Family History Family PMH: FOUND: other (noncontributory) Social History Sexuality: male partner Review of Systems Constitutional Constitutional: DENIES: chills, dizziness, fever, weakness Eyes General: DENIES: erythema, exudate Lids/Accessories: DENIES: erythema, swelling ENMT Ears: DENIES: pain Sinuses: DENIES: congestion, rhinorrhea Mouth/Throat: DENIES: sore throat Cardiovascular Cardiac: DENIES: chest pain, murmur Rhythm/Rate: DENIES: palpitations Pulmonary Respiratory: DENIES: cough, dyspnea GI Upper Abdomen: nausea, see HPI, DENIES: pain, vomiting Lower Abdomen: pain, see HPI, DENIES: blood in stool, diarrhea General: DENIES: dysuria, pain Musculoskeletal General: DENIES: joint pain, pain, tenderness Integumentary Skin: DENIES: color change, itching, rash Neurological General: DENIES: ataxia, change in strength, numbness, paralysis/paresis, weakness Psychiatric Psychiatric: DENIES: anxiety, depression, nervousness Physical Exam General General Nourishment: well nourished, well developed, no acute distress, adult Vitals and Pain First Documented Vital Signs Date Time Temp Pulse Resp B/P Pulse Ox O2 Delivery O2 Flow Rate FiO2 11/08/16 13:40 98.3 103 18 131/81 98 Room Air Weight: Kilograms: 49.800 Height (feet): 4 Height (inches): 11.00 Triage Pain Scale: Eyes (brief) Eyes Brief: found: EOMI ENMT (brief) ENMT Brief: FOUND: mucosa moist, NOT FOUND: nasal exudate, nasal swelling, pharnyx erythema Neck (brief) Neck: FOUND: trachea midline Respiratory (brief) Respiratory: FOUND: clear all guzman, equal bilaterally, symmetrical Cardiovascular (brief) Cardiac: FOUND: regular rate, regular rhythm Abdomen (brief) Abdominal Brief: FOUND: bowel normo active x4, soft, NOT FOUND: distended, tender Musculoskeletal (brief) Musculoskeletal Brief: NOT FOUND: deformity, tenderness Integumentary (brief) Integumentary Brief: FOUND: dry, pink, warm Neurologic (brief) Neurological Brief: FOUND: CN w/o gross def to obs, motor-no gross deficits, sensory-no gross deficits Psychiatric (brief) Psychiatric Brief: FOUND: alert, normal affect, oriented Differential Diagnoses Considering: Acute SC, Bowel Obstruction, Diverticulitis, Ovarian Cyst, Ulcerative Colitis Progress Results/Orders Orders Procedure Category Date Status Time Cbc W/Auto LAB 11/08/16 Complete Diff-Reflex Manual Cmp - Comprehensive LAB 11/08/16 Complete Metabolic Lipase LAB 11/08/16 Complete LAB 11/08/16 Complete Qualitative, Urine 14:00 Iv Lock (Ed Only) EDM 11/08/16 Transmitted 14:08 Ondansetron Inj PHA 11/08/16 Complete (Zofran) 14:15 Hydromorphone PHA 11/08/16 Complete (Dilaudid) 15:00 UA, LAB 11/08/16 Complete Dip&Micro(Complete) & 14:22 Normal Saline (Normal PHA 11/08/16 Complete Saline Iv) 15:15 Ct Abd/Pelvis CT 11/08/16 Taken W/Contrast Only Iohexol (Omnipaque) PHA 11/08/16 Complete 15:30 Normal Saline (Ns) PHA 11/08/16 Complete 15:31 Saline Flush (Iv PHA 11/08/16 Complete Flush) 15:31 Ketorolac (Toradol) PHA 11/08/16 Complete 17:00 Lab Results Laboratory Tests Test 11/08/16 14:22 White Blood Count 10.0T/MM3 Red Blood Count 4.69M/MM3 Hemoglobin 15.4GM/DL Hematocrit 45.7% Mean Corpuscular Volume 97.4UM3 Mean Corpuscular Hemoglobin 32.8UUG Mean Corpuscular Hemoglobin Concent 33.7GM/DL RDW Standard Deviation 42.0FL Platelet Count 288T/MM3 Mean Platelet Volume 10.9UM3 Immature Granulocyte % (Auto) 0.2% Neutrophils (%) (Auto) 60.8% Lymphocytes (%) (Auto) 23.9% Monocytes (%) (Auto) 7.4% Eosinophils (%) (Auto) 6.6% Basophils (%) (Auto) 1.1% Absolute Immature Granulocyte (auto 0.02T/MM3 Absolute Neutrophils (auto) 6.1T/MM3 Absolute Lymphocytes (auto) 2.4T/MM3 Absolute Monocytes (auto) 0.7T/MM3 Absolute Eosinophils (auto) 0.7T/MM3 Absolute Basophils (auto) 0.1T/MM3 Urine Collection Type Cleancatch-midstream Urine Color Yellow Urine Turbidity Clear Urine pH 5.5 Urine Specific Libby >=1.030 Urine Protein Negative Urine Glucose (UA) Negative Urine Ketones Negative Urine Blood 1+ Urine Nitrite Negative Urine Bilirubin Negative Urine Urobilinogen 0.2EU/DL Urine Leukocyte Esterase Negative Urine RBC 1-3/HPF Urine WBC 1-3/HPF Urine Squamous Epithelial Cells 0-5 Urine Bacteria 1+ Urine Culture Indicated Cult not indicated Urine Test Negative Turbidity < 20 Sodium Level 145MEQ/L Potassium Level 3.8MEQ/L Chloride Level 107MEQ/L Carbon Dioxide Level 23MEQ/L Anion Gap 15MEQ/L Blood Urea Nitrogen 11.0MG/DL Creatinine 0.6MG/DL Glomerular Filtration Rate Calc 116 BUN/Creatinine Ratio 18RATIO Glucose Level 84MG/DL Calculated Osmolality 277MOSM/KG Calcium Level 9.5MG/DL Total Bilirubin 0.60MG/DL Icterus Index < 2 Aspartate Amino Transf (AST/SGOT) 34U/L Alanine Aminotransferase (ALT/SGPT) 31U/L Alkaline Phosphatase 67U/L Total Protein 8.3G/DL Albumin 4.6G/DL Globulin 3.7G/DL Albumin/Globulin Ratio 1.2RATIO Lipase 11U/L Chemistry Specimen Hemolysis 46 Medications Current ED Medications Ondansetron HCl (Zofran) 4 mg O ONCE IV Last administered on 11/08/16 14:30; Start 11/08/16 at 14:15; Stop 11/08/16 at 14:16; Status DC Hydromorphone HCl 0.5 mg 0.5 mg O ONCE IV Last administered on 11/08/16 15:03 ; Start 11/08/16 at 15:00; Stop 11/08/16 at 15:01; Status DC Sodium Chloride (Normal Saline IV) 1,000 ml @ 0 mls/hr Q0M ONCE IV Last administered on 11/08/16 15:20; Start 11/08/16 at 15:15; Stop 11/08/16 at 15:16 ; Status DC Iohexol 1 bottle 1 bottle STK-MED ONCE .ROUTE ; Start 11/08/16 at 15:30; Stop at 15:31; Status DC Sodium Chloride (NS) 100 ml @ As Directed STK-MED ONCE .ROUTE ; Start 11/08/16 at 15:31; Stop 11/08/16 at 15:32; Status DC Sodium Chloride (Iv Flush) 10 ml STK-MED ONCE .ROUTE ; Start 11/08/16 at 15:31; Stop 11/08/16 at 15:32; Status DC Ketorolac Tromethamine (Toradol) 30 mg O ONCE IV Last administered on t 16:56; Start 11/08/16 at 17:00; Stop 11/08/16 at 17:01; Status DC Progress Progress Patient reports improvement of pain and nausea after dialudid and zofran. Labs unremarkable, however due to past bowel surgery and RLQ pain (unknown if she has appendix will due CT which risk and benefits were discussed with patient who agreed to CT). I discussed CT findings with patient and that she has a large right adnexal cyst. I discussed conversation I had with Dr. Duke (see below), treatment plan, follow up with [employer] (Dr. Duke) and return precautions which patient verbalized understanding. Consult/PCP Consult/PCP : Physician Contacted: Dr. Duke Type of discussion: Phone Consult/PCP Discussion Details I discussed patient's HPI, past medical history, labs, exam findings and CT findings with Dr. Duke. Dr. Duke felt patient could go home however she feels patient should follow up this week in their office for reevaluation. Dr. Duke states that if patient's pain increases prior to appointment time that she may call her directly through the hospital seal mixing operator instead of going to the ER. CT CT : CT: Abd/Pelvis IV contrast (status post total colectomy, large right adnexal cyst ) Interpretation: Discussed w/ Radiologist SAROJ RYAN APRN Nov 08, 2016 14:04
--- NOTE | 2016-11-08 14:05 | NUR ---
HALEY WEINSTEIN IN
[2016-11-08] MEDS ORDERED: ONDANSETRON 4mg/2ml INJECTION IV ONE (14:15)
[2016-11-08 14:54] LABS: BLOOD, URINE 1+ (NEGATIVE); COLOR,URINE YELLOW (YELLOW); LEUKOCYTE ESTERASE ,URINE NEGATIVE (NEGATIVE); NITRITE,URINE NEGATIVE (NEGATIVE); UROBILINOGEN,URINE 0.2 EU/DL (NORMAL)
[2016-11-08 14:57] LABS: BASOPHILS # (AUTO) 0.1 T/MM3 (0-0.2); BASOPHILS % (AUTO) 1.1 % (0-2); EOSINOPHILS # (AUTO) 0.7 T/MM3 (0-0.5); EOSINOPHILS % (AUTO) 6.6 % (0-4); HCT - HEMATOCRIT 45.7 % (36-46); HGB - HEMOGLOBIN 15.4 GM/DL (12-16); IMMATURE GRANULOCYTE # (AUTO) 0.02 T/MM3 (0.00-0.03); IMMATURE GRANULOCYTE % (AUTO) 0.2 % (0.0-0.5); LYMPHOCYTES # (AUTO) 2.4 T/MM3 (1-4.8); LYMPHOCYTES % (AUTO) 23.9 % (23-45); MEAN CORPUSCULAR HGB 32.8 UUG (26-34); MEAN CORPUSCULAR HGB CONC(MCHC 33.7 GM/DL (31-37); MEAN CORPUSCULAR VOLUME 97.4 UM3 (80-100); MEAN PLATELET VOLUME 10.9 UM3 (9.4-12.4); MONOCYTES # (AUTO) 0.7 T/MM3 (0-0.8); MONOCYTES % (AUTO) 7.4 % (0-9.0); NEUTROPHILS #(AUTO)-ABSOLUTE 6.1 T/MM3 (1.8-7.7); NEUTROPHILS % (AUTO) 60.8 % (33-66); RED BLOOD COUNT 4.69 M/MM3 (4.00-5.20)
[2016-11-08] MEDS ORDERED: HYDROMORPHONE 2mg/ml INJECTION IV ONE (15:00)
[2016-11-08 15:05] LABS: ALBUMIN 4.6 G/DL (3.5-5.0); ALBUMIN/GLOBULIN RATIO 1.2 RATIO (1.1-2.2); ALKALINE PHOSPHATASE 67 U/L (38-126); ALT (SGPT) 31 U/L (9-52); ANION GAP 15 MEQ/L (5-15); AST (SGOT) 34 U/L (14-36); BUN/CREATININE RATIO 18 RATIO (6-26); CALCIUM 9.5 MG/DL (8.4-10.2); CHLORIDE 107 MEQ/L (98-107); CO2 - CARBON DIOXIDE 23 MEQ/L (22-30); CREATININE 0.6 MG/DL (0.7-1.2); GLOMERULAR FILTRATION RATE 116; GLUCOSE 84 MG/DL (65-110); LIPASE 11 U/L (23-300); POTASSIUM 3.8 MEQ/L (3.6-5); SODIUM 145 MEQ/L (134-144); TOTAL PROTEIN 8.3 G/DL (6.3-8.2)
[2016-11-08 15:09] LABS: BACTERIA,URINE 1+ (NEGATIVE); SQUAMOUS EPITHELIAL CELL,UR 0-5
[2016-11-08] MEDS ORDERED: NORMAL SALINE 1,000 ML IV ONE (15:15)
--- NOTE | 2016-11-08 15:23 | NUR ---
HALEY WEINSTEIN IN
[2016-11-08] MEDS ORDERED: IOHEXOL 300 MG/ML 75ml INJECTION ONE (15:30)
[2016-11-08] MEDS ORDERED: SALINE FLUSH 10ml SYRINGE ONE (15:31)
[2016-11-08] MEDS ORDERED: NORMAL SALINE 100 ML ONE (15:31)
--- NOTE | 2016-11-08 15:34 | NUR ---
TO CT PER CART
--- NOTE | 2016-11-08 15:52 | NUR ---
RETURNED FROM CT
[2016-11-08] MEDS ORDERED: HYDR-4246 PO (16:49)
--- NOTE | 2016-11-08 16:56 | NUR ---
PAIN INCREASED FROM 3 TO 5. REPORTED TO MANAGER GROCERY
[2016-11-08] MEDS ORDERED: ONDA4TAB7 PO (16:57)
[2016-11-08] MEDS ORDERED: KETOROLAC 30mg/ml INJECTION IV ONE (17:00)
[2016-11-08 17:07] VITALS: BP 117/66; PULSE 65; RESP 16; TEMP 98.2; O2SAT 98
--- NOTE | 2016-11-09 08:33 | DI ---
Indication: ITS.REASON: RLQ pain, hx. of bowel resection PROCEDURE: CT ABD/PELVIS W/CONTRAST ONLY: Encounter: Initial Comparison: None Technique: Axial CT images were performed through the abdomen and pelvis after the administration of intravenous contrast. Coronal and sagittal two-dimensional reformats. Automated Exposure Control and Iterative Reconstruction dose reducing techniques were utilized. Contrast: Omnipaque 300 67 mL Findings: The lung bases are clear. The liver appears normal. The gallbladder, spleen, fatty replaced pancreas and adrenal glands are within normal limits. The kidneys are normal. No abdominal or pelvic lymphadenopathy. Large bilobed cystic lesion in the region of the right ovary measuring 6.5 x 4.3 cm on axial image #60 uterus is grossly unremarkable. Evidence of anastomosis in the pelvis that appears to be due to prior total colectomy and ileoanal pull-through. Small amount of free pelvic fluid. Bladder is normal. No evidence of a bowel obstruction. Bone windows show no acute findings. Impression: Large cyst or cystic mass in the right ovary. Recommend pelvic ultrasound for more detailed evaluation. Due to the size of the lesion this would place the patient at risk for ovarian torsion. There is a preliminary report by [facility]. .
== END 2016-11-08 17:07 | disposition home or self-care (01) ==
LOC: ED 13:36
DX: N83.201 Unspecified ovarian cyst, right side (principal)
CPT/HCPCS: 74177; 80053; 81001; 81025; 83690; 85025; 96361; 96374; 96375; 99284; J1170; J1885; J2405; J7030; J7050; Q9967